=== PATIENT | male | born 1990 | race Two or more races ===

== ENCOUNTER 2017-05-02 12:45 | Inpatient (IN) | payer MEDICAID, OTHER ==
[~2017-05-02] VITALS: Ht 190.5 cm; Wt 87.1 kg
[2017-05-02] MEDS ORDERED: psych meds PO (12:55)
[2017-05-02] MEDS ORDERED: SODIUM CHLORIDE 0.9% 1,000 ML IV ONE (13:15)
[2017-05-02] MEDS ORDERED: NALOXONE HCL 1 MG/ML 2 ML SYG IVP ONE (13:15)
[2017-05-02 13:26] LABS: BASOPHILS % (AUTO) 0.3 % (0.0-2.0); EOSINOPHILS % (AUTO) 1.8 % (1.0-6.0); HEMATOCRIT 45.4 % (41-53); HEMOGLOBIN 15.5 g/dL (13.5-17.5); LYMPHOCYTES # (AUTO) 1.4 K/uL (1.0-4.8); LYMPHOCYTES % (AUTO) 14.1 % (22.0-44.0); MEAN CORPUSCULAR HEMOGLOBIN 30.8 pg (26.0-34.0); MEAN CORPUSCULAR HGB CONC 34.2 G/dL (31.0-37.0); MEAN CORPUSCULAR VOLUME 90 fL (80-100); MONOCYTES # (AUTO) 0.8 K/uL (0.1-1.0); MONOCYTES % (AUTO) 7.9 % (2.0-9.0); NEUTROPHILS # (AUTO) 7.6 K/uL (1.8-7.7); NEUTROPHILS % (AUTO) 75.9 % (40.0-70.0); PLATELET COUNT (AUTO) 223 K/uL (150-450); RED BLOOD CELL COUNT(AUTO) 5.05 MIL/uL (4.50-5.90); RED CELL DISTRIBUTION WIDTH 12.5 % (11.5-14.5)
[2017-05-02 13:38] LABS: ANION GAP 7 mmol/L (8-16); CARBON DIOXIDE 31 mmol/L (22-29); CHLORIDE 99 mmol/L (98-107); CREATININE 0.85 mg/dL (0.60-1.30); GLOMERULAR FILTR. RATE CALC > 60 mL/min (>60); POTASSIUM 3.3 mmol/L (3.5-5.1); SODIUM SERUM 137 mmol/L (136-145); UREA NITROGEN, BLOOD 20 mg/dL (7-18)
[2017-05-02 13:43] LABS: ALANINE AMINOTRANSFERASE 87 U/L (12-78); ALBUMIN 3.6 g/dL (3.4-5.0); ASPARTATE AMINOTRANSFERASE 74 U/L (15-37); BILIRUBIN,TOTAL 0.7 mg/dL (0.1-1.0); TOTAL PROTEIN, SERUM 7.3 g/dL (6.4-8.2)
[2017-05-02 14:01] LABS: SALICYLATE < 2.8 mg/dL (2.8-20.0)
[2017-05-02 14:02] LABS: ACETAMINOPHEN < 2 mcg/mL (10-30)
[2017-05-02] MEDS ORDERED: HALOPERIDOL 5 MG TABLET PO PRN (16:00)
[2017-05-02] MEDS ORDERED: ZOLPIDEM TARTRATE 10 MG TABLET PO PRN (16:00)
[2017-05-02] MEDS ORDERED: LORazepam 2 MG TABLET PO PRN (16:00)
[2017-05-02 16:23] LABS: CHOL/HDL RATIO 2.1 (4.2-7.3); THYROID STIMULATING HORMONE 0.78 uIU/mL (0.36-3.74)
[2017-05-02] MEDS ORDERED: POTASSIUM CHLORIDE 20 MEQ ER TABLET PO ONE (17:15)
[2017-05-02 17:17] LABS: APPEARANCE,URINE CLOUDY (CLEAR); GLUCOSE, URINE (UA) NEGATIVE (NEGATIVE); KETONES,URINE 15 mg/dL (NEGATIVE); LEUKOCYTE ESTERASE ,URINE NEGATIVE (NEGATIVE); OCCULT BLOOD,URINE NEGATIVE (NEGATIVE); PH,URINE 6.5 (5.0-8.0); PROTEIN,URINE NEGATIVE (NEGATIVE)
[2017-05-02 17:18] LABS: ADD UA MICROSCOPIC NO
[2017-05-02 18:30] VITALS: BP 116/84
[2017-05-02 18:41] VITALS: BP 116/84
[2017-05-02] MEDS ORDERED: INFLUENZA VIRUS VACCINE QVS 2017-18 (3YR+)/PF 60 MCG/0.5 ML SYRINGE IM ONE (18:45)
[2017-05-02 19:30] VITALS: BP 114/80
[2017-05-02 20:30] VITALS: BP 109/60
[2017-05-02 21:30] VITALS: BP 112/62
[2017-05-03 01:30] VITALS: BP 116/66
[2017-05-03 05:30] VITALS: BP 109/60
[2017-05-03] MEDS ORDERED: IBUPROFEN 600 MG TABLET PO PRN (07:15)
[2017-05-03] MEDS ORDERED: ONDANSETRON HCL 4 MG TABLET PO PRN (07:15)
[2017-05-03] MEDS ORDERED: CloNIDine HCL 0.1 MG TABLET PO PRN (07:15)
[2017-05-03] MEDS ORDERED: ACETAMINOPHEN 325 MG TABLET PO PRN (07:15)
[2017-05-03] MEDS ORDERED: BENZOCAINE/MENTHOL LOZENGE MM PRN (07:15)
[2017-05-03] MEDS ORDERED: MAGNESIUM HYDROXIDE SUSPENSION 30 ML UDCUP PO PRN (07:15)
[2017-05-03] MEDS ORDERED: LOPERAMIDE HCL 2 MG CAPSULE PO PRN (07:15)
[2017-05-03] MEDS ORDERED: PETROLATUM,WHITE 71 GM JELLY TP PRN (07:15)
[2017-05-03] MEDS ORDERED: MAG HYDROX/AL HYDROX/SIMETH ES 30 ML SUSPENSION UDCUP PO PRN (07:15)
[2017-05-03] MEDS ORDERED: ALBUTEROL SULFATE HFA 90 MCG/PUFF 8 GM INHALER IH PRN (07:15)
[2017-05-03] MEDS ORDERED: BACITRACIN 28.4 GM OINTMENT TP PRN (07:15)
[2017-05-03] MEDS: NICOTINE 21 MG/24 HOUR PATCH TD SCH (08:33)
[2017-05-03 08:36] VITALS: BP 118/61
[2017-05-03 12:10] VITALS: BP 117/52
[2017-05-03 13:34] VITALS: BP 117/55
[2017-05-03] MEDS: GABAPENTIN 400 MG CAPSULE PO SCH (16:35)
[2017-05-03 17:59] VITALS: BP 124/64
[2017-05-03] MEDS ORDERED: TraZODone HCL 50 MG TABLET PO SCH (21:00)
[2017-05-04 06:20] VITALS: BP 111/60
[2017-05-04 08:00] VITALS: BP 129/67
[2017-05-04] MEDS: GABAPENTIN 400 MG CAPSULE PO SCH ×2 (08:31→13:06)
[2017-05-04] MEDS: NICOTINE 21 MG/24 HOUR PATCH TD SCH (08:35)
[2017-05-04] MEDS ORDERED: GABA-533 PO (10:38)
[2017-05-04] MEDS ORDERED: TRAZ-144 PO (10:38)
[2017-05-06 23:21] LABS: HEPATITIS Bs ANTIGEN SCREEN P Negative (Negative); HEPATITIS C AB SCREEN >11.0 s/co ratio (0.0-0.9)
== END 2017-05-04 13:25 | disposition home or self-care (01) | DRG 750 ==
LOC: EMS 12:47 → B2S 17:04 → B3A 05-03 19:32
PROVIDERS: ADMIT Psychiatry & Neurology Psychiatry; ATTEND Psychiatry & Neurology Psychiatry
DX: F25.9 Schizoaffective disorder, unspecified (principal); F11.20 Opioid dependence, uncomplicated; R45.851 Suicidal ideations; E87.6 Hypokalemia; F15.10 Other stimulant abuse, uncomplicated; K21.9 Gastro-esophageal reflux disease without esophagitis; F14.10 Cocaine abuse, uncomplicated; F17.210 Nicotine dependence, cigarettes, uncomplicated; F12.10 Cannabis abuse, uncomplicated; R73.9 Hyperglycemia, unspecified; Z71.51 Drug abuse counseling and surveillance of drug abuser; Z71.6 Tobacco abuse counseling; Z91.14 Patient's other noncompliance with medication regimen
CPT/HCPCS: 51702; 80074; 83036; 84132; 84439; 84443; 93005; 96361; 96374; 99285; 99406; G0480; G0481; J2310